=== PATIENT | male | born 1995 | race Caucasian/White ===

== ENCOUNTER 2024-03-05 14:25 | Emergency (ER) | payer BC, SELFPAY ==
[2024-03-05 14:35] VITALS: BP 124/80; PULSE 78; RESP 18; TEMP 37.1; O2SAT 100
--- NOTE | 2024-03-05 15:13 | ED.GENADULT ---
HPI - General Adult General Chief complaint: Upper Respiratory Infection Stated complaint: Cough/Shortness of Breath Source: patient Mode of arrival: ambulatory History of Present Illness HPI narrative: Pt presents for evaluation of sinus symptoms. Symptom onset four days ago. He has sinus congestion mucopurulent discharge. No fever, chills, nausea, vomiting, cough, shortness of breath. No recent sick contacts to his knowledge. He tried decongestants and OTC cough and cold medications. Symptoms persist. Related Data Allergies Allergy/AdvReac Type Severity Reaction Status Date / Time No Known Allergies Allergy Unverified 01/06/13 13:05 Review of Systems Review of Systems: CONSTITUTIONAL: Denies fever, chills, or sweats. EYES: Denies visual changes, redness, or discharge. ENT: Reports sinus congestion and thick mucopurulent discharge CARDIOVASCULAR: Denies chest pain, palpitations, or edema. RESPIRATORY: Denies cough or dyspnea. GASTROINTESTINAL: Denies abdominal pain, nausea, vomiting, or diarrhea. GENITOURINARY: Denies dysuria or hematuria. SKIN: Denies rash or itching. MUSCULOSKELETAL: Denies back pain, joint pain, or myalgia. NEUROLOGIC: Denies headache, numbness, dizziness, or weakness. PSYCHIATRIC: Denies anxiety or depression. FORMERLY [facility], 1928–1983 Past Medical History Medical History No pertinent past medical history Surgical History Surgical History No pertinent past surgical history Family History Family History Mother Family history non-contributory Social History Social History (Updated 03/05/24 @ 15:16 by YU GarciaP, ) Gender identity (if verbalized by the patient): Male Exam Narrative: GENERAL: Well-appearing, well-nourished, and in no acute distress. HEAD: Normocephalic, atraumatic. EYES: PERRLA and EOMI. ENT: There is frontal bilateral maxillary sinus tenderness. There is thick mucopurulent discharge in the nares bilaterally. Mucous membranes moist. Oropharynx without tonsillar hypertrophy exudate or other lesions. Bilateral TMs pearly avina nonbulging NECK: Supple. No adenopathy or masses. No carotid bruits or JVD CHEST: Clear to auscultation. No respiratory distress. No wheezes rales or rhonchi HEART: Regular rate and rhythm. No murmur heard. Normal peripheral pulses. ABDOMEN: Soft, nontender, nondistended, normal active bowel sounds. EXTREMITIES: Normal range of motion. No edema. SKIN: Warm, dry, no rash. NEURO: No focal deficits. Alert and oriented x3. PSYCH: Normal mood and affect. Course Course Emergency Course: This is a 28-year-old male who presented for evaluation of sinus symptoms. He meets criteria for bacterial sinusitis based upon mucopurulent nature his discharge. Treat with Augmentin. Increase hydration. OTC agents for symptom management. Follow up with primary provider. Go to the ER for worsening symptoms. Pt in agreement with plan of care. Level of Care: Express Care Visit Vital Signs Vital signs: Vital Signs Temperature 37.1 C 03/05/24 14:35 Pulse Rate 78 03/05/24 14:35 Respiratory Rate 18 03/05/24 14:35 Blood Pressure 124/80 03/05/24 14:35 Pulse Oximetry 100 03/05/24 14:35 Oxygen Delivery Room Air 03/05/24 14:35 Temperature 37.1 C 03/05/24 14:35 Pulse Rate 78 03/05/24 14:35 Respiratory Rate 18 03/05/24 14:35 Blood Pressure 124/80 03/05/24 14:35 Pulse Oximetry 100 03/05/24 14:35 Oxygen Delivery Room Air 03/05/24 14:35 Medical Decision Making Vital Signs Vital Signs: Vital Signs Temperature 37.1 C 03/05/24 14:35 Pulse Rate 78 03/05/24 14:35 Respiratory Rate 18 03/05/24 14:35 Blood Pressure 124/80 03/05/24 14:35 Pulse Oximetry 100 03/05/24 14:35 Oxygen Delivery Room Air 03/05/24 14:35
== END 2024-03-05 14:59 | disposition home or self-care (01) ==
PROVIDERS: Emergency Provider Nurse Practitioner
DX: J01.90 Acute sinusitis, unspecified (principal)
CPT/HCPCS: 99203; G0463